=== PATIENT | male | born 1970 | race Caucasian/White ===

== ENCOUNTER 2019-01-16 09:36 | Emergency (ER) | payer BC, MEDICAID ==
[~2019-01-16] VITALS: Ht 177.8 cm; Wt 108.9 kg
[2019-01-16] MEDS ORDERED: ATORVASTATIN CALCIUM 40 MG TAB (10:03)
[2019-01-16] MEDS ORDERED: GABAPENTIN 300 MG CAPS (10:03)
[2019-01-16] MEDS ORDERED: CITALOPRAM 40 MG (10:03)
[2019-01-16] MEDS ORDERED: HCT (10:03)
[2019-01-16] MEDS ORDERED: LOSARTAN (10:03)
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
[2019-01-16] MEDS ORDERED: NAPR-1071 PO (10:41)
[2019-01-16 10:51] VITALS: BP 128/91
== END 2019-01-16 10:55 | disposition home or self-care (01) ==
LOC: EDUNIT# 09:36 → ER FS 09:40
DX: S43.101A Unspecified dislocation of right acromioclavicular joint, initial encounter (principal); W17.89XA Other fall from one level to another, initial encounter
CPT/HCPCS: 73030

== ENCOUNTER 2019-10-27 11:52 | Emergency (ER) | payer BC, OTHER ==
[~2019-10-27] VITALS: Ht 173.5 cm; Wt 109.7 kg
[~2019-10-27 11:52] MED LIST: ATORVASTATIN CALCIUM 40 MG TAB; CITALOPRAM 40 MG; GABAPENTIN 300 MG CAPS; HCT; LOSARTAN; NAPR-1071 PO
[2019-10-27] MEDS ORDERED: CYCL10TA9 PO (12:10)
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
[2019-10-27 12:15] VITALS: BP 200/90
[2019-10-27] MEDS ORDERED: IBUP-1780 (12:25)
== END 2019-10-27 12:15 | disposition home or self-care (01) ==
LOC: EDUNIT# 11:52 → ER FS 11:53
DX: S29.012A Strain of muscle and tendon of back wall of thorax, initial encounter (principal); I10 Essential (primary) hypertension; G89.29 Other chronic pain; M54.9 Dorsalgia, unspecified; E78.00 Pure hypercholesterolemia, unspecified; F32.9 Major depressive disorder, single episode, unspecified; Z91.14 Patient's other noncompliance with medication regimen; V49.60XA Unspecified car occupant injured in collision with unspecified motor vehicles in traffic accident, initial encounter
CPT/HCPCS: 99281

== ENCOUNTER 2019-12-14 06:31 | Emergency (ER) | payer OTHER ==
[~2019-12-14] VITALS: Ht 172.7 cm; Wt 110.0 kg
[~2019-12-14 06:31] MED LIST changes: +CYCL10TA9 PO; +IBUP-1780
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
[2019-12-14 07:17] VITALS: BP 174/96
== END 2019-12-14 07:17 | disposition home or self-care (01) ==
LOC: EDUNIT# 06:31 → ER FS 06:35
DX: S39.012A Strain of muscle, fascia and tendon of lower back, initial encounter (principal); S40.012A Contusion of left shoulder, initial encounter; E78.00 Pure hypercholesterolemia, unspecified; I10 Essential (primary) hypertension; F32.9 Major depressive disorder, single episode, unspecified; F17.200 Nicotine dependence, unspecified, uncomplicated; V53.5XXA Driver of pick-up truck or van injured in collision with car, pick-up truck or van in traffic accident, initial encounter
CPT/HCPCS: 99282